=== PATIENT | male | born 1945 | race Caucasian/White ===

== ENCOUNTER → 2017-02-07 | Emergency (ER) | payer MEDICARE ==
[~2017-02-07] MED LIST: EPINEPHRINE INJ 1 MG/10 ML DISP.SYRIN ONE; SODIUM BICARBONATE 8.4% INJ 50 MEQ/50 ML DISP.SYRIN ONE
--- NOTE | 2017-02-07 03:19 | ER Document Report ---
ED General - General Stated Complaint: CARDIAC ARREST Time Seen by Provider: 02/07/17 03:05 Notes: Patient is a 71-year-old male who presents with complaint of cardiac arrest. Initially called EMS because he was having chest pain. He took aspirin at home. He then walked into the and [employer]. While in route he went into cardiac arrest. Paramedics that he initially started to become bradycardic. They gave him atropine. After the atropine was did become hypotensive and eventually bradycardia down into asystole. They gave him 6 rounds of epinephrine in route. He did not have a shockable rhythm in route. Her medics did intubate him. Patient presents to the ER with CPR in progress. Patient does have a previous history of coronary disease and has had stenting in the past. Patient and his just moved here from [place]. Past Medical History - Social History Smoking Status: Unknown if Ever Smoked Frequency of alcohol use: unknown Drug Abuse: Other - unknown Family History: Other - unknown Review of Systems - Review of Systems -: Yes ROS unobtainable due to patient's medical condition - Patient is unresponsive. Physical Exam - Notes Notes: General Appearance: Unresponsive with CPR in progress. Vitals: reviewed, See vital signs table. Head: no swelling or tenderness to the head Eyes: Pupils are dilated and nonresponsive to light. Mouth: OG tube in position with dark red blood in the tube. Throat: Intubated Neck: Supple chest wall: petechiae and redness to chest wall from prolonged CPR Lungs: Bilateral breath sounds with manual ventilation. Heart: Asystolic. No heart sounds. Abdomen: Scarring on abdomen. Abdomen is soft. Extremities: Bilateral lower extremity edema that is approximately 2+. No palpable peripheral pulses. No palpable central pulses. Skin: warm, dry, appropriate color, no rash Neuro: Responsive. No purposeful movement. Pupils are dilated and nonreactive. Course - Re-evaluation Re-evalutation: 02/07/17 03:19 Continued CPR patient arrived to ED. Patient received multiple doses of epinephrine here as well as an embolus. He received bicarb. Received calcium gluconate IV. He will was always in asystole with exception of one time he had a very bradycardic PA. He never had a shockable rhythm. During his resuscitation effort I did go back and speak with patient's . Confirms history of the chest pain leading to cardiac arrest tonight. He does have history of coronary disease. Informed her that we are having difficult time getting return of pulse despite her best efforts. I did ask her if she wanted to come back to the patient's room during the resuscitation process. She standardly preferred not to. I then went back and continue resuscitation efforts for weight little while longer to no avail. Patient remained in asystole on her current pulse checks. Bedside ultrasound shows no cardiac activity. Patient was declared at 3:02 AM. Dictation of this chart was performed using voice recognition software; therefore, there may be some unintended grammatical errors. 02/07/17 03:21 Discharge - Discharge Clinical Impression: Cardiac arrest Disposition:
[2017-02-07 04:28] VITALS: BP 135/46
== END | disposition expired ==
LOC: ER 02:44
DX: I46.9 Cardiac arrest, cause unspecified (principal); I25.10 Atherosclerotic heart disease of native coronary artery without angina pectoris
CPT/HCPCS: 99285; 92950; 82962; J0171; J3490